=== PATIENT | female | born 2000 | race Two or more races ===

== ENCOUNTER 2022-12-17 20:14 | Emergency (ER) | payer SELFPAY ==
[~2022-12-17] VITALS: Ht 162.6 cm; Wt 46.0 kg
[2022-12-17 20:18] VITALS: BP 119/70
== END 2022-12-17 21:43 | disposition home or self-care (01) ==
LOC: ER 20:14
DX: F41.9 Anxiety disorder, unspecified (principal)
CPT/HCPCS: 99283